=== PATIENT | female | born 1990 | race Caucasian/White ===

== ENCOUNTER 2016-08-18 19:15 | Emergency (ER) | payer SELFPAY ==
[~2016-08-18] VITALS: Ht 160 cm; Wt 48.2 kg
[2016-08-18 20:22] LABS: URINE BILIRUBIN - DIPSTICK NEGATIVE (NEGATIVE); URINE BLOOD DIPSTICK NEGATIVE (NEGATIVE); URINE CLARITY SLIGHT CLOUDY; URINE COLOR YELLOW; URINE GLUCOSE - DIPSTICK NEGATIVE (NEGATIVE); URINE KETONE NEGATIVE (NEGATIVE); URINE LEUK ESTERASE NEGATIVE (NEGATIVE); URINE NITRITE - DIPSTICK NEGATIVE (Negative); URINE PROTEIN - DIPSTICK NEGATIVE (NEG-TRACE); URINE SPECIFIC GRAVITY 1.025; URINE UROBILINOGEN - DIPSTICK 0.2 E.U./dL (0.2)
[2016-08-18 20:28] LABS: BARBITURATES NEGATIVE (NEGATIVE); COCAINE NEGATIVE (NEGATIVE); METHADONE NEGATIVE (NEGATIVE); TETRAHYDROCANNABIONOL NEGATIVE (NEGATIVE); TRICYLIC ANTIDEPRESSANTS NEGATIVE (NEGATIVE)
[2016-08-18 20:29] LABS: OXCYCODONE NEGATIVE (NEGATIVE)
[2016-08-18 20:30] VITALS: BP 163/86
[2016-08-18] MEDS ORDERED: BENADRYL 50MG C50 MG PO (20:32)
[2016-08-18] MEDS ORDERED: BENADRY2 EX (20:32)
[2016-08-18] MEDS ORDERED: BACTRIM DS1 TAB PO (20:39)
== END 2016-08-18 20:44 | disposition home or self-care (01) | DRG 607 ==
LOC: ED 19:15
PROVIDERS: Emergency Medicine
DX: L50.9 Urticaria, unspecified (principal); F15.10 Other stimulant abuse, uncomplicated; F17.210 Nicotine dependence, cigarettes, uncomplicated